=== PATIENT | female | born 1980 | race Asian ===

== ENCOUNTER 2017-10-24 08:21 | Day surgery (SDC) | payer MEDICAID ==
[2017-10-23 10:34] LABS: BASOPHILS % (AUTO) 0.5 % (0-1); EOSINOPHILS # (AUTO) 0.1 X10'3 (0-0.9); EOSINOPHILS % (AUTO) 1.5 % (0-6); LYMPHOCYTES # (AUTO) 2.4 X10'3 (1.1-4.8); LYMPHOCYTES % (AUTO) 36.7 % (21-51); MEAN CORPUSCULAR HEMOGLOBIN 21.8 PG (27.0-31.0); MEAN CORPUSCULAR HGB CONC 33.1 % (33.0-36.5); MEAN CORPUSCULAR VOLUME 65.9 FL (78-98); MEAN PLATELET VOLUME 9.5 FL (7.4-10.4); MONOCYTES # (AUTO) 0.4 X10'3 (0-0.9); MONOCYTES % (AUTO) 5.3 % (2-12); NEUTROPHILS # (AUTO) 3.7 X10'3 (1.8-7.7); PRE OP HEMATOCRIT 37.2 % (35.0-45.0); PRE OP HEMOGLOBIN 12.3 g/dL (12.0-16.0); PRE OP PLATELET COUNT 219 X10'3 (140-440); RED BLOOD COUNT 5.64 X10'6 (4.20-5.60); RED CELL DISTRIBUTION WIDTH 15.6 % (11.5-14.5)
[2017-10-23 10:43] LABS: ANION GAP 8 (8-16); BLOOD UREA NITROGEN 15 MG/DL (7-18); BUN/CREATININE RATIO 22.4 (6.6-38.0); CALCIUM 9.2 MG/DL (8.5-10.1); CHLORIDE 105 MMOL/L (99-107); CREATININE 0.67 MG/DL (0.40-0.90); GLUCOSE 88 MG/DL (70-104); POTASSIUM 3.9 MMOL/L (3.5-5.1); SODIUM 141 MMOL/L (135-145); TOTAL CARBON DIOXIDE 27.7 MMOL/L (24-32); eGFR > 90 ML/MIN
[2017-10-23 10:47] LABS: HCG SERUM QL NEGATIVE
[2017-10-23 11:07] LABS: ANISOCYTOSIS 1+; MICROCYTOSIS 2+; PLATELET ESTIMATE NORMAL; STOMATOCYTES 1+; TARGET CELLS FEW; TEAR DROP CELLS 1+
[2017-10-23 11:08] LABS: SCHISTOCYTES FEW
[~2017-10-24] VITALS: Ht 149.9 cm; Wt 71.0 kg
[2017-10-24] VITALS (10 sets, daily range): BP systolic 112–134; BP diastolic 65–99
[~2017-10-24 08:21] MED LIST: ENTE0.5T4 PO; famotidine 20mg tablet PO ONE; ringers solution, lacted 1,000 ML IV SCH
[2017-10-24] MEDS ORDERED: ringers solution, lacted 1,000 ML IV SCH (09:31)
[2017-10-24] MEDS ORDERED: midazolam 2 mg/2 ml injection ONE (09:33)
[2017-10-24] MEDS ORDERED: fentaNYL/PF 50MCG/1 ML 2ML syringe ONE (09:33)
[2017-10-24] MEDS ORDERED: acetaminophen 1,000mg/100ml IV 100 ML IV PRN (09:35)
[2017-10-24] MEDS ORDERED: ondansetron/PF 4mg/2ml inj IV PRN (09:35)
[2017-10-24] MEDS ORDERED: meperidine/PF 50mg/ml syringe IV PRN ×3 (09:35)
[2017-10-24] MEDS ORDERED: morphine 2 MG/ML inj. syringe IV PRN ×2 (09:35)
[2017-10-24] MEDS ORDERED: ketorolac trometh. 30mg/ml inj. IV ONE (09:35)
[2017-10-24] MEDS ORDERED: proCHLORperazine 10 MG/2 ml inj IV PRN (09:35)
[2017-10-24] MEDS ORDERED: LIDOcaine 2% 5ml jelly ONE (09:36)
[2017-10-24] MEDS ORDERED: rocuronium 10mg/ml inj IV ONE (09:44)
[2017-10-24] MEDS ORDERED: LIDOcaine 2% (20mg/ml) 5ml vial ONE (09:44)
[2017-10-24] MEDS ORDERED: propofol inj 20 ML IV ONE (09:44)
[2017-10-24] MEDS ORDERED: dexamethasone sod phosphate 4mg/ml inj. ONE (09:57)
[2017-10-24] MEDS ORDERED: ondansetron/PF 4mg/2ml inj ONE (09:57)
[2017-10-24] MEDS ORDERED: ibuprofen 200mg tablet PO PRN (11:30)
[2017-10-24] MEDS ORDERED: traMADol 50MG tablet PO PRN (11:35)
== END 2017-10-24 11:32 | disposition home or self-care (01) ==
LOC: PAS 08:21
PROVIDERS: ATTEND Obstetrics & Gynecology
DX: Z30.2 Encounter for sterilization (principal); E66.9 Obesity, unspecified; Z86.19 Personal history of other infectious and parasitic diseases; Z87.891 Personal history of nicotine dependence; Z68.31 Body mass index [BMI] 31.0-31.9, adult
CPT/HCPCS: 36415; 58670; 80048; 84703; 85025; J1100; J2001; J2175; J2250; J2405; J2704; J3010; J7120; A7000